=== PATIENT | male | born 1965 | race Caucasian/White ===

== ENCOUNTER 2020-12-24 09:40 | Outpatient (CLI) | payer BC, SELFPAY ==
--- NOTE | ~2020-12-24 | XR_ITS ---
XR lumbar spine 2-3V 12/24/2020 09:54 Indication: Low back pain Procedure: 3 views lumbar spine Comparison: No prior studies for comparison. Findings: Mild levocurvature of the lumbar spine. There is disc narrowing at all lumbar levels. There is moderate multilevel facet hypertrophy. There is mild levocurvature of the lumbar spine. Moderate colonic fecal loading. No fracture or traumatic malalignment. Impression: 1: Moderate lumbar spondylosis. Reviewed, dictated and finalized at location B. Impression: 1: Moderate lumbar spondylosis.
== END 2020-12-24 09:41 ==
PROVIDERS: PCP Internal Medicine; Visit Provider Internal Medicine
DX: M47.896 Other spondylosis, lumbar region (principal)
CPT/HCPCS: 72100

== ENCOUNTER 2024-11-26 03:25 | Emergency (ER) | payer MEDICARE, SELFPAY ==
--- NOTE | ~2024-11-26 | CT_ITS ---
Non-contrast CT scan of the Abdomen and Pelvis Clinical indication: Flank pain, urinary retention Technique: 2.5 mm axial scans were obtained through the abdomen and pelvis without intravenous or or al contrast. Dose reduction technique was used on this scan by utilizing automated exposure control a nd iterative reconstruction technique. The dose-length product (DLP) was 654.10 mGy-cm. Findings: Images through the lung bases reveal discoid atelectasis or scarring at the lung bases lilian aterally. 2 mm nonobstructing left renal stone present. No right renal stone. No ureteral stone or hydronephros is on either side. The liver, spleen, pancreas, gallbladder, and adrenals appear normal. There are atherosclerotic calci fications of the aorta. . There is no evidence of bowel obstruction. Images through the pelvis were performed. There is no evidence of ascites or lymphadenopathy. Urinary bladder collapsed with Daniel catheter, and air within it. Prostate gland is enlarged. No ascites. Impression: 2 mm nonobstructing left renal stone. Enlarged prostate gland. Reviewed, dictated and finalized at [facility]. Impression: 2 mm nonobstructing left renal stone. Enlarged prostate gland.
--- OUTSIDE RECORDS SUMMARY | 2024-11-26 03:27 | XMS_ITS | Clinical Summary ---
Author Organization [facility] Address [address] [place] [id number] Care Team Providers Care Zoo Caretaker Name Role Phone Prince Lopez MD Primary Care Provider [phone] Allergies No known active allergies Medications No known medications Social History Tobacco Use Types Packs/Day Years Used Date Smoking Tobacco: Every Day Cigarettes Smokeless Tobacco: Never Alcohol Use Standard Drinks/Week Comments Yes 0 (1 standard drink = 0.6 oz pur e alcohol) 10 drinks a week Sex and Gender Information Value Date Recorded Sex Assigned at Not on file Legal Sex Male 5:24 PM CDT Gender Identity Not on file Sexual Orientation Not on file Last Filed Vital Signs Vital Sign Reading Time Taken Comments Blood Pressure 112/60 06/11/2022 8:30 PM CDT Pulse 64 06/11/2022 7:12 PM CDT Temperature 36.4 C (97.5 F) 06/11/2022 5:30 PM CDT Respiratory Rate 18 06/11/2022 7:12 PM CDT Oxygen Saturation 96% 06/11/2022 8:30 PM CDT Inhaled Oxygen Concentration - - Weight 86.2 kg (190 lb) 06/11/2022 5:30 PM CDT Height 188 cm (6' 2 ) 06/11/2022 5:30 PM CDT Body Mass Index 24.39 06/11/2022 5:30 PM CDT Plan of Treatment Health Maintenance Due Date Last Done Comments Colorectal Cancer Screening Colonoscopy (10 Years) 1963 Annual Physical 11/25/1966 Pneumococcal Vaccine: Pediatrics (0 to 5 Years) and At-Risk Patients (6 to 64 Years) (1 of 2 - PCV) 11/25/1969 Hepatitis C 11/25/1981 DTaP, Tdap and Td Vaccines (1 - Tdap) 11/25/1982 Zoster Vaccines (1 of 2) 11/25/2013 COVID-19 Vaccine ( - season) 2024 02/21/2022, 06/08/2021, 09/23/2020, Additional history exists RSV Immunization or 60+ Years (1 - 1-dose 75+ series) 11/25/2038 Meningococcal B Vaccine Aged Out No l onger eligible based on patient's age to complete this topic Meningococcal Vaccine Aged Out No eugenia nikolai eligible based on patient's age to complete this topic RSV Immunizations Under 20 Months Aged Out No longer eligible based on patient's age to complete this topic Insurance Care Teams Zoo Caretaker Relationship Specialty Start Date End Date Prince Lopez MD PCP - General INTERNAL MEDICINE 06/11/22
--- OUTSIDE RECORDS SUMMARY | 2024-11-26 03:27 | XMS_ITS | Encounter Summary ---
Author Organization [facility] Address [address] [place] [address] Care Team Providers Care Project Management It Specialist Name Role Phone Prince Lopez MD Primary Care Provider Encounter Details Date Type Department Care Team (Late st Contact Info) Description 11/25/2024 11:43 AM CDT - 11/25/2024 11:59 PM CDT Hospital Encounter [facility] [address] [facility] [place] [address] Gilson Almeida, DO [address] [facility] [place] [address] Discharge Disposition: Home or Self Care Social History Tobacco Use Types Packs/Day Years Used Date Smoking Tobacco: Every Day Cigarettes Smokeless Tobacco: Never Alcohol Use Standard Drinks/Week Comments Yes 2 (1 standard drink = 0.6 oz pur e alcohol) two 24 oz cans of beer per day AUDIT-C Answer Date Recorded Q1: How often do you have a drink containing alc ohol? Never 07/05/2022 Q2: How many drinks containi ng alcohol do you have on a typical day when you are drinking? Patient declined 07/05/2022 Q3: How often do you have si x or more drinks on one occasion? Patient declined 07/05/2022 PHQ-2 Answer Date Recorded Patient Health Questionnaire-2 Score 0 11/25/2024 Hunger Vital Sign Answer Date Recorded Within the past 12 months, y ou worried that your food would run out before you got the money to buy more. Never true 07/06/20 22 Within the past 12 months, t he food you bought just didn't last and you didn't have money to get more. Never true 07/06/2022 Sex and Gender Information Value Date Recorded Sex Assigned at Not on file Gender Identity Not on file Sexual Orientation Not on file documented as of this encounter Functional Status Functional Status Response Date of Assess ment Is person deaf or have serious hearing difficult y? No 06/12/2022 Is person blind or have serious difficulty seein g? No 06/12/2022 Does person have serious dif ficulty walking/climbing stairs? No 06/12/2022 Does person have difficulty dressing/bathing? No 06/12/2022 Does person have difficulty doing errands alone? No 06/12/2022 Cognitive Status Response Date of Assessm ent Does person have difficulty concentrating/remembering/making decisions? No 06/12/2022 documented as of this encounter Medications at Time of Discharge Medication Sig Dispensed Refills Start Date End Date acetaminophen (Tylenol) 325 MG tablet Take 1 (one) tablet to 2 (two) tablets by mouth every 6 hours as needed for Pain Maximum allowable Acetaminophen amount = 4 Grams (4000 mg) / 24 hours. 60 tablet 07/07/2022 acetaminophen-codeine (Tylenol #3) 300-30 MG tablet Take 1 (one) tablet by mouth every 6 hours as needed for Pain 12 tablet 04/24/2023 buPROPion XL 24hr (Wellbutrin-XL) 300 MG tablet Take 1 (one) tablet by mouth every morning cyclobenzaprine (Flexeril) 10 MG tabletIndications:Typ e I or II open fracture of left ankle with routine healing, subsequent encounter TAKE 1 TABLET BY MOUTH THREE TIMES DAILY NEEDED FOR MUSCLE SPASMS 30 tablet 08/29/2022 diclofenac sodium (Voltaren) 1 % gel Apply 2 (two) g to affected area 4 times daily 100 g 06/05/2023 FLUoxetine (PROzac) 40 MG capsule Take 1 (one) capsule by mouth once daily gabapentin (Neurontin) 600 MG tablet TAKE 1 TABLET BY MOUTH THREE TIMES DAILY 90 tablet 2 08/02/2023 documented as of this encounter Plan of Treatment Not on file documented as of this encounter Procedures Procedure Name Priority Date/Time Associated Diagnosis Comments XR ANKLE LEFT 3VW OR MORE Routine 11/25/2024 11:49 AM CDT Closed displaced pilon fracture of left tibia with routine healing, subsequent encounter documented in this encounter Results * XR Ankle Left 3Vw or More (11/25/2024 11:49 AM CDT) Anatomical Region Laterality Modality Lower Extremity Computed Radiogr aphy 11/25/2024 1:24 PM CDT Impressions 11/25/2024 1:28 PM CDT IMPRESSION: Distal tibial fracture with plate and screw fixation. The alignment is unchanged. There are several broken screws which are unchanged. > Interpreting Provider: Edgar Quiles MD on 11/25/2024 1:28 PM Narrative 11/25/2024 1:28 PM CDT PROCEDURE: XR ANKLE LEFT 3VW OR MORE DATE/TIME OF EXAM: 11/25/2024 11:49 AM CLINICAL INFORMATION: None relevant/not provided if blank. Indication: S82.872D: Closed displaced pilon fracture of left tibia with routine healing, subsequent encounter Additional History: COMPARISON: 02/19/2024 FINDINGS: Redemonstration of a distal tibial fracture with plate and screw fixation. There are several broken screws, unchanged. The osseous alignment is unchanged. There is no dislocation. The tibiotalar joint space is obscured due to the hardware. Procedure Note Edgar Quiles MD - 11/25/2024 PROCEDURE: XR ANKLE LEFT 3VW OR MORE DATE/TIME OF EXAM: 11/25/2024 11:49 AM CLINICAL INFORMATION: None relevant/not provided if blank. Indication: S82.872D: Closed displaced pilon fracture of left tibia with routine healing, subsequent encounter Additional History: COMPARISON: 02/19/2024 FINDINGS: Redemonstration of a distal tibial fracture with plate and screwfixation. There are several broken screws, unchanged. The osseous alignment is unchanged. There is no dislocation. The tibiotalar joint space isobscured due to the hardware. IMPRESSION: Distal tibial fracture with plate and screw fixation. The alignment is unchanged. There are several broken screws which are unchanged. > Interpreting Provider: Edgar Quiles MD on 11/25/2024 1:28 PM Gilson Almeida DO DIAGNOSTIC IMAGING [facility] documented in this encounter Visit Diagnoses Diagnosis Closed displaced pilon fracture of left tibia with routine healing, subsequent encounter documented in this encounter Care Teams Project Management It Specialist Relationship Specialty Start Date End Date Prince Lopez MD [id number] [address] PCP - General Internal Medicine 12/04/23 documented as of this encounter
--- OUTSIDE RECORDS SUMMARY | 2024-11-26 03:27 | XMS_ITS | CONTINUITY OF CARE DOCUMENT ---
Author Name lelo lind Address Unknown Organization [facility] Address [address] [facility] [address] [place] [address] Phone [phone] Care Team Providers Care Php Web Developer Name Role Phone Caesar Stafford MD Unavailable [phone] Prince Lopez MD Unavailable Prince Lopez MD Unavailable PROBLEMS Condition Status Date Provider Notes CHEST PAIN-TYPE TO BE DETERMINED active ? Caesar Stafford MD TOBACCO ABUSE active ? Caesar Stafford MD PALPITATIONS active Caesar Stafford MD ENCOUNTERS Date Type Provider Location Encounter Diag nosis - In-person encounter Office Visit Caesar Stafford MD [place] [facility] CHEST PAIN-TYPE TO BE DETERMINEDTOBACCO ABUSEPALPITATIONS VITAL SIGNS Date Observation Value Provider blood pressure, diastolic, left arm 71 mm [Hg] Stefan Hughes RN blood pressure, systolic, left arm 117 mm [Hg] Stefan Hughes RN blood pressure, diastolic, right arm 69 m m[Hg] Stefan Hughes RN blood pressure, systolic, right arm 112 m m[Hg] Stefan Hughes RN blood pressure, diastolic 71 mm[Hg] Fabiano Hughes RN blood pressure, systolic 117 mm[Hg] Stefan Hughes RN pulse rate 57 /min Stefan Hughes RN oxygen saturation, oximetry 96 % Stefan Hughes RN respiratory rate E&M 18 /min Stefan rodgers RN weight E&M 213 [lb_av] Stefan Hughes RN HISTORY OF MEDICATION USE Medication Status Instructions Dates Provider Indications Com ments CYCLOBENZAPRINE HCL 5 MG ORAL TABLET active 1 tablet by mouth daily Matt Reajewels DICLOFENAC SODIUM 75 MG ORAL TABLET DELAYED RELEASE active 1 tablet by mouth daily Matt Reajewels FAMOTIDINE 20 MG ORAL TABLET active 1 tablet by mouth twice daily Matt Reajewels SERTRALINE HCL 50 MG ORAL TABLET active 1 tablet by mouth daily Matt Vail PROTONIX 20 MG ORAL TABLET DELAYED RELEASE active ONE TAB. DAILY Stefan Hughes RN SOCIAL HISTORY Date Observation Value Provider smoking/tobacco cess ation, patient education and counseling yes Stefan Hughes RN social history E&M Marital Statu s: Dayana kohler with family/friends E thnicity: Stefan Hughes RN social history reviewed E&M reviewed Stefan Hughes RN physical exercise, f requency, days per week no [employer] caffeine use, averag e drinks per day yes [employer] alcohol use, average drinks per day 1-3 drinks per day [employer] number of years as a smoker 10 years or m ore [facility] smoking status [facility] MENTAL [facility]US Date Observation Value Provider assessment of judgme nt and insight E&M Alert and oriented to time, place and person. Mood and affect are normal. Stefan Hughes RN INSURANCE PROVIDERS Payer name Policy type / Coverage type Yung red republican ID [facility] Other [id number] TREATMENT PLAN Date Name Performer chest pain: B P today: 117/71 Prior BP: / () Orders: E KG (CPT-13288) C omplete Echo (CPT-44213) S tress Test - Nuclear (82036) Caesar Stafford MD Date Name Holter Monitor 24 Hr Stress Test - Nuclea r Complete Echo HISTORY OF PROCEDURES Procedure Date Procedure Name Provider Procedure Notes S tatus EKG Caesar Stafford MD completed
--- OUTSIDE RECORDS SUMMARY | 2024-11-26 03:27 | XMS_ITS | Encounter Summary ---
Author Organization [facility] Address [address] [place] [address] Care Team Providers Care Product Development Worker Name Role Phone Prince Lopez MD Primary Care Provider [phone] Encounter Details Date Type Department Care Team (Late st Contact Info) Description 11/24/2024 Orders Only [facility] - Orthoped[facility] [address] [place] [address], [place] [id number] Gilson Almeida, [address] [place] [address] [place] [address] Closed displaced pilon fracture of left tibia with routine healing, subsequent encounter Social History Tobacco Use Types Packs/Day Years [...] No 06/12/2022 documented as of this encounter Plan of Treatment Not on file documented as of this encounter Results * XR Ankle Left [...] of left tibia with routine healing, subsequent encounter- Primary Closed displaced pilon fracture of left tibia with routine healing, subsequent encounter documented in this encounter Care Teams Product Development Worker Relationship Specialty Start Date End Date Prince Lopez MD [phone] [address] PCP - General Internal Medicine 12/04/23 documented as of this encounter
--- OUTSIDE RECORDS SUMMARY | 2024-11-26 03:27 | XMS_ITS | Clinical Summary ---
Author Organization [facility] [employer] [facility] Address [address] [facility] [place] [address] Care Team Providers Care Pad Hand Name Role Phone Prince Lopez MD Primary Care Provider Source Comments [facility] [employer] [facility]non-owned Affiliates and Associated Physician Practices is amultiple site organization consisting of ambulatory clinics and hospital sitesin [place] and [place]. This disclosure is being madepursuant to the Care Everywhere program and may not contain all information available regarding this patient. Last updated 18.[facility] [employer] [facility] Allergies No known active allergies Medications * Be aware that medications may not be up to date on this document. Alwaysverify current medications with the patient. Medication Sig Dispensed Refills Start Date End Date Status buPROPion XL 24hr (Wellbutrin-XL) 300 MG tablet Take 1 (one) tablet by mouth every morning Active FLUoxetine (PROzac) 40 MG capsule Take 1 (one) capsule by mouth once daily Active acetaminophen (Tylenol) 325 MG tablet Take 1 (one) tablet to 2 (two) tablets by mouth every 6 hours as needed for Pain Maximum allowable Acetaminophen amount = 4 Grams (4000 mg) / 24 hours. 60 tablet 07/07/2022 Active cyclobenzaprine (Flexeril) 10 MG tabletIndication s:Type I or II open fracture of left ankle with routine healing, subsequent encounter TAKE 1 TABLET BY MOUTH THREE TIMES DAILY NEEDED FOR MUSCLE SPASMS 30 tablet 08/29/2022 Active Additional Information Patient taking differently: 10 mg Oral 3 TIMES DAILY PRN, Reported on 01/23/2023 acetaminophen-co deine (Tylenol #3) 300-30 MG tablet Take 1 (one) tablet by mouth every 6 hours as needed for Pain 12 tablet 04/24/2023 Active Additional Information Patient not taking.Reported on 08/07/2023 diclofenac sodium (Voltaren) 1 % gel Apply 2 (two) g to affected area 4 times daily 100 g 06/05/2023 Active gabapentin (Neurontin) 600 MG tablet TAKE 1 TABLET BY MOUTH THREE TIMES DAILY 90 tablet 2 08/02/2023 Active triamcinolone acetonide (Kenalog) 0.1 % cream Apply 0.1 Each to affected area as directed 5 Discontinue d(List Clean-Up) diclofenac sodium EC (Voltaren) 75 MG tablet Take 1 (one) tablet by mouth as directed 5 Discontinue d(List Clean-Up) meloxicam (Mobic) 7.5 MG tablet Take 1 (one) tablet by mouth once daily 30 tablet 3 06/05/2023 5 Discontinue d(List Clean-Up) Active Problems Problem Noted Date Diagnosed Date Closed displaced pilon fract ure of left tibia with routine healing, subsequent encounter 07/05/2022 Fall 06/12/2022 Closed displaced pilon fracture of left tibia [place] fracture of fibu la, left, closed, initial encounter 06/12/2022 Encounters Date Type Department Care Team Description 11/25/2024 12:15 PM CDT Office Visit [facility] - Orthopedics [address] [place] [address] [phone] Gilson Almeida DO Hennessey, Margaret Ann, PA-C Closed displaced pilon fracture of left tibia with routine healing, subsequent encounter (Primary Dx) 11/25/2024 11:43 AM CDT - 11/25/2024 11:59 PM CDT Hospital Encounter [facility] [address] [place] [phone] Gilson Almeida DO Discharge Disposition: Home or Self Care 11/24/2024 Orders Only [facility] - Orthopedics [address] [place] [address] [phone] Gilson Almeida DO Closed displaced pilon fracture of left tibia with routine healing, subsequent encounter 11/05/2024 Travel from Last 3 Months Immunizations Name Administration Dates Next Due Christelle De Santiago primary monovalent 12+ yr 0.5mL ,09/02/2020 INFLUENZA VACCINE 05/08/2022 Social History Tobacco Use Types Packs/Day Years Used Date Smoking Tobacco: Every Day Cigarettes Smokeless Tobacco: Never Tobacco Cessation:Ready to Q uit: Not Asked; Counseling Given: Not Answered Alcohol Use Standard Drinks/Week Comments Yes 2 [...] Sign Reading Time Taken Comments Blood Pressure 133/89 09/19/2022 1:51 PM CONCESSION SUPERVISOR Pulse 81 09/19/2022 1:51 PM CONCESSION SUPERVISOR Temperature 36.7 C (98 F) 09/19/2022 1:51 PM CONCESSION SUPERVISOR Respiratory Rate 20 07/07/2022 12:47 PM CONCESSION SUPERVISOR Oxygen Saturation 98% 09/19/2022 1:51 PM CONCESSION SUPERVISOR Inhaled Oxygen Concentration - - Weight 90.7 kg (200 lb) 11/25/2024 11:52 AM CDT Height 188 cm (6' 2 ) 10/17/2022 3:17 PM CONCESSION SUPERVISOR Body Mass Index 25.68 10/17/2022 3:17 PM CONCESSION SUPERVISOR Plan of Treatment Health Maintenance Due Date Last Done Comments COLOGUARD (AGES 45-75) - COLON CA SCREENING 1963 COLON MONITORING 1963 COLONOSCOPY - COLON CA SCREENING 1963 CT COLONOGRAPHY - COLON CA SCREENING 1963 Colorectal Cancer Screening 1963 FIT - COLON CA SCREENING 1963 FLEX SIG - COLON CA SCREENING 1963 LIPID TESTING 1963 HIV SCREENING 11/25/1978 HEPATITIS C SCREENING 11/21/1981 DTAP/TDAP/TD VACCINES (1 - Tdap) 11/25/1982 PNEUMOCOCCAL VACCINE 50+ (1 of 2 - PCV) 11/25/1982 ZOSTER VACCINE (1 of 2) 11/25/2013 Respiratory Syncytial Virus (RSV) Vaccine Pt: or over 60 yrs (1 - Risk 60-74 years 1-dose series) 2023 COVID-19 VACCINE (2023- season) 2024 06/09/2022, 02/21/2022, 06/08/2021, Additional history exists INFLUENZA VACCINE (Season Ended) 2025 05/08/2022 DEPRESSION SCREENING Completed 11/25/2024, 12/04/19 24 HEPATITIS B VACCINE Aged Out No longe r eligible based on patient's age to complete this topic HIB VACCINE Aged Out No longer eligi ble based on patient's age to complete this topic HPV VACCINE Aged Out No longer eligi ble based on patient's age to complete this topic MENINGOCOCCAL (Group B) VACCINE SHARED DECISION-MAKING Aged Out No longer eligible based on patient's age to complete this topic MENINGOCOCCAL GROUPS A/C/Y/W VACCINE Aged Out No longer eligible based on patient's age to complete this topic Medical Devices Implanted Type Area Rope Tier Device Identifier Shelf Expiration Date Model / Serial / Lot Pin Hlf 255mm 5mm Jtx Lng Ss 35mm Extfix Implanted:Qty: 2 on 06/12/2022 by Gilson Almeida DO at [facility] Left: [employer] [id number] / / Pin Hlf 5cm 5mm Jtx Orth Ss Extfix Sys Implanted:Qty: 1 on 06/12/2022 by Gilson Almeida DO at [facility] Left: [employer] [id number] / / Screw 3.5mm 30mm Cortx Slf-Tap Evos Strl Implanted:Qty: 2 on 07/05/2022 by Gilson Almeida DO at [facility] Left: Ankle [employer] [id number] / / Screw 3.5mm 42mm Slf-Tap Cortx Evos Strl Implanted:Qty: 1 on 07/05/2022 by Gilson Almeida, DO at [facility] Left: Ankle [employer] [id number] / / Screw 3.5mm 48mm 2.2mm Mldir Lck Sq Drv Implanted:Qty: 1 on 07/05/2022 by Gilson Almeida DO at [facility] Left: Ankle [employer] [id number] / / Screw 3.5mm 46mm T15 Drv Lck Lopro Implanted:Qty: 1 on 07/05/2022 by Gilson Almeida, DO at [facility] Left: Ankle [employer] [id number] / / Screw 3.5mm 55mm T15 Lck Lopro Slf-Tap Implanted:Qty: 2 on 07/05/2022 by Gilson Almeida DO at [facility] Left: Ankle [employer] [id number] / / Screw 3.5mm 26mm 2.5mm Nonlock Hex Drv Implanted:Qty: 1 on 07/05/2022 by Gilson Almeida DO at [facility] Left: Ankle [employer] [id number] / / Screw 3.5mm 30mm Ft Slf-Tap Hex Lopro Implanted:Qty: 1 on 07/05/2022 by Gilson Almeida DO at [facility] Left: Ankle [employer] [id number] / / Screw 3.5mm 34mm Ft Nonlock Hex Drv Elb Implanted:Qty: 1 on 07/05/2022 by Gilson Almeida DO at [facility] Left: Ankle [employer] [id number] / / Screw 3.5mm 42mm Ft Slf-Tap Hex Lopro Implanted:Qty: 1 on 07/05/2022 by Gilson Almeida DO at [facility] Left: Ankle [employer] [id number] / / Plate 9 Hl Lopro Va Lck Prt Artc Tib Lt Implanted:Qty: 1 on 07/05/2022 by Gilson Almeida DO at [facility] Left: Ankle [employer] [id number] / / Plate 9 Hl Lck Lopro Blt Tip Tib Lt Dist Implanted:Qty: 1 on 07/05/2022 by Gilson Almeida DO at [facility] Left: Ankle [employer] [id number] / / Plate 6 Hl Lck 70mm /3 Tblr Evos 3.5mm Implanted:Qty: 1 on 07/05/2022 by Gilson Almeida DO at [facility] Left: Ankle [employer] [id number] / / Plate 9 Hl Va Lck Fib Lt Dist 125mm Implanted:Qty: 1 on 07/05/2022 by Gilson Almeida, DO at [facility] Left: Ankle [employer] [id number] / / Screw 3.5mm 40mm Slf-Tap Cortx Evos Strl Implanted:Qty: 1 on 07/05/2022 by Gilson Almieda DO at [facility] Left: Ankle [employer] [id number] / / Screw 3.5mm 50mm Slf-Tap Cortx Evos Strl Implanted:Qty: 1 on 07/05/2022 by Gilson Almeida DO at [facility] Left: Ankle [employer] [id number] / / Screw 3.5mm 26mm Slf-Tap Cortx Evos Strl Implanted:Qty: 1 on 07/05/2022 by Gilson Almeida DO at [facility] Left: Ankle [employer] [id number] / / Screw 3.5mm 28mm Slf-Tap Cortx Evos Strl Implanted:Qty: 3 on 07/05/2022 by Gilson Almeida DO at [facility] Left: Ankle [employer] [id number] / / Explanted Type Area Rope Tier Device Identifier Shelf Expiration Date Model / Serial / Lot Wire K 1.6mm 6in Hlf Bynt Pnt Ss Fx Explanted:Qty: 3 on 07/05/2022 by Gilson Almeida DO at [facility] Left: Ankle [employer] [id number] / / Screw 3.5mm 30mm T15 Slf-Tap Tip Lck Explanted:Qty: 1 on 07/05/2022 by Gilson Almeida DO at [facility] Left: Ankle [employer] [id number] / / Screw 3.5mm 44mm Ft Slf-Tap Hex Lopro Explanted:Qty: 1 on 07/05/2022 by Gilson Almeida DO at [facility] Left: Ankle [employer] [id number] / / Screw 3.5mm 46mm Ft Hex Drv Nlckg Ford Explanted:Qty: 1 on 07/05/2022 by Gilson Almeida DO at [facility] Left: Ankle [employer] [id number] / / Screw 3.5mm 20mm Slf-Tap Cortx Evos Strl Explanted:Qty: 1 on 07/05/2022 by Gilson Almeida DO at [facility] Left: Ankle [employer] [id number] / / Procedures Procedure Name Priority Date/Time Associated Diagnosis Comments XR ANKLE LEFT 3VW OR MORE Routine 11/25/2024 11:49 AM CDT Closed displaced pilon fracture of left tibia with routine healing, subsequent encounter from Last 3 Months Results * XR Ankle Left 3Vw or [...] Gilson Almeida DO DIAGNOSTIC IMAGING O RDERABLES from Last 3 Months Advance Directives * Full Code (Latest Code Status on File) Date Activated Date Inactivated Comments 07/05/2022 3:39 PM 07/07/2022 6:04 PM * Full Code Date Activated Date Inactivated Comments 06/12/2022 4:47 PM 06/13/2022 7:29 PM Care Teams Pad Hand Relationship Specialty Start Date End Date Prince Lopez MD [address] [address] PCP - General Internal Medicine 12/04/23
--- OUTSIDE RECORDS SUMMARY | 2024-11-26 03:27 | XMS_ITS | Encounter Summary ---
Author Organization [facility] Address [address] [address] Care Team Providers Care Brine Maker Name Role Phone Prince Lopez MD Primary Care Provider [phone] Encounter Details Date Type Department Care Team (Late st Contact Info) Description 11/25/2024 12:15 PM CDT Office Visit [facility] - Orthopedics [address] [place] [address], [place] [phone] Gilson Almeida, [address] [facility] [place] [address] Freya Perez PA-C [address] [place] [address] [place] [address] Closed displaced pilon fracture of left tibia with routine healing, subsequent encounter (Primary Dx) Social History Tobacco Use Types Packs/Day Years [...] on file documented as of this encounter Last Filed Vital Signs Vital Sign Reading Time Taken Comments Blood Pressure - - Pulse - - Temperature - - Respiratory Rate - - Oxygen Saturation - - Inhaled Oxygen Concentration - - Weight 90.7 kg (200 lb) 11/25/2024 11:52 AM CDT Height - - Body Mass Index 25.68 10/17/2022 3:17 PM DELIVERY AGENT documented in this encounter Functional Status Functional Status Response [...] No 06/12/2022 documented as of this encounter Patient Instructions * Patient Instructions* Freya Perez PA-C - 11/25/2024 12:14 PM CDT Images from the original note were not included. Department of Orthopaedic Surgery Helio Fuchs 11/25/2024 Thank you for allowing us to care for you today. You were seen in clinic today for follow up Please use this note as a school/work excuse: patient had appointment on 11/25/2024. Diagnosis: Closed displaced pilon fracture of left tibia with routine healing, subsequent encounter Your weight bearing (WB) status will be WBAT of the left lower extremity We recommend that you try the following for your injury: Activities as tolerated If you are interested in further surgery for ankle fusion, we will have a Foot & Ankle specialist joining the practice in Fall 2024. Prescriptions: none Medications over the counter: - Acetaminophen (Tylenol) 500mg 1-2 tablets every 6 hours as needed for pain, not exceeding daily total of 4000mg. Please note that narcotic medications can consist of same ingredient. - Anti-inflammatory medications, such as Ibuprofen or Aleve, as needed for pain. Bone Health: Recommend the following to promote bone health: Vitamin D Multivitamin 1 tablet daily Calcium 1200mg daily Stop smoking - nicotine, which can be found in cigarettes, cigars, chewing tobacco, and e-cigarettes/vapres, has been shown to slow bone healing and increase your risk for infection. Decrease alcohol consumption Fall prevention Please make a follow up appointment as needed. Please call the clinic if you have any questions. [facility] Orthopaedic office contact information: [facility] ([facility]) - 1st Floor [address] [place] [address] For after hour concerns, please call and press 0 for the candle extrusion machine operator in order to page the orthopedic resident longwall foreman. Visit our website at [email or web address] for information about our practice and an interactive health encyclopedia. Please visit [email or web address] to access your health record, ask questions, request medication refills, and request appointments for non-urgent needs after you have configured your [employer] account. If you do not currently have access, please contact one of our staff members or call [phone]. documented in this encounter Progress Notes * Leonela Turner RN - 11/25/2024 12:00 PM CDT Patient here reported persistent pain and discomfort to left ankle, pain is 7/10, takes Tylenol PRN. Numbness, tingling noted at times. Has been WBAT with cane for long distances. documented in this encounter Plan of Treatment Not on file documented as of this encounter Visit Diagnoses Diagnosis Closed displaced pilon fracture of left tibia with routine healing, subsequent encounter- Primary documented in this encounter Care Teams Brine Maker Relationship Specialty Start Date End Date Prince Lopez MD [address] [address] PCP - General Internal Medicine 12/04/23 documented as of this encounter
[2024-11-26 03:32] VITALS: BP 138/92; PULSE 67; RESP 16; TEMP 36.3; O2SAT 97
--- NOTE | 2024-11-26 04:01 | ED.ABDPAIN ---
HPI - Abdominal Pain General Chief Complaint: Abdominal Pain Stated Complaint: abd pain Time Seen by Provider: 11/26/24 03:31 History of Present Illness HPI narrative: 59-year-old male with no pertinent past medical history presenting to the emergency department for evaluation of urinary retention and back pain for last 2 days. He states he has been having some urinary issues for last week with dribbling in urine, split streams, no history of kidney stones or prostate issues. No fever chills. Reports right-sided back pain. No history of kidney stones but has a family history of them. Was otherwise in his normal state of health. In triage she had a greater than 1000 mL bladder scan. Has not seen a urologist previously. Related Data Allergies Allergy/AdvReac Type Severity Reaction Status Date / Time No Known Allergies Allergy Verified 11/26/24 03:26 Review of Systems Review of Systems: As [facility] Family History Family History Sibling Family history of lupus erythematosus Mother Family history of heart disease in male family member before age 55 Other Family history of Alzheimer's disease Hypertension Social History Social History Smoking status: Heavy tobacco smoker Alcohol intake: current Exam Narrative: GENERAL: [Well-appearing, well-nourished, and in no acute distress.] HEAD: [Normocephalic, atraumatic.] EYES: [PERRLA and EOMI.] ENT: Nares clear, no rhinorrhea or epistaxis. Mucous membranes moist. NECK: Supple. CHEST: [Clear to auscultation. No respiratory distress.] HEART: [Regular rate and rhythm]. No murmur heard. [Normal peripheral pulses.] ABDOMEN: Distended suprapubic area, no CVA tenderness, [nontender], [No rigidity or guarding] EXTREMITIES: Normal range of motion. [No edema.] SKIN: Warm, dry, no rash. NEURO: [No focal deficits]. Alert and oriented [x3.] PSYCH: [Normal mood and affect.] Course Vital Signs Vital signs: Vital Signs Temperature 36.3 C L 11/26/24 03:32 Pulse Rate 67 11/26/24 03:32 Respiratory Rate 16 11/26/24 03:32 Blood Pressure 138/92 H 11/26/24 03:32 Pulse Oximetry 97 11/26/24 03:32 Oxygen Delivery Room Air 11/26/24 03:32 Temperature 36.7 C 11/26/24 06:25 Pulse Rate 75 11/26/24 06:25 Respiratory Rate 19 11/26/24 06:25 Blood Pressure 124/85 11/26/24 06:25 Pulse Oximetry 97 11/26/24 06:25 Oxygen Delivery Room Air 11/26/24 03:32 MDM - Abdominal Pain MDM Narrative Medical decision making narrative: 59-year-old male presenting with lower abdominal pain, abdominal distension and right-sided flank pain for 2 days associated with changes in his urination. He has no known history of kidney stones or prostate issues. For last 2 days he has been having dribbling with urinary stream. No fever chills. Normal vital signs in triage. Abdomen is soft but distended. Urinary catheter was placed for urinary retention as he has a bladder scan of greater than 1000 mL. He had immediate relief of abdominal pain and back pain and almost 1 L of urine without was clear has been drained. His abdomen is no longer distended. Considerations presently are for acute urinary retention, prostate issues, prostatitis, urinary tract infection, obstructing kidney stone, bladder stone. Laboratory studies were obtained as well as urinalysis. CT without contrast ordered. Patient will be evaluated and he was placed on monitor and pulse ox. Patient's workup shows a leukocytosis of 17.8, normal platelets, normal hemoglobin. Chemistry panel shows normal renal function, normal glucose, normal LFTs. Unremarkable electrolytes. Urinalysis shows no signs of infection. CT scan shows a 2 mm nonobstructing left renal stone as well as a enlarged prostate gland which is likely the source for the symptoms. Patient has no fever or chills, no tachycardia. No suspicion presently for prostatitis. I discussed with the patient plan of care at this time for Flomax and outpatient urology follow-up with or without indwelling Daniel catheter upon discharge. Elected to keep the catheter in place rather than do a trial of void with removal in the emergency department. Patient was given Flomax and Tylenol, ibuprofen. He will follow up with Urology and his primary doctor. He was given return precautions which he verbalized understanding. Medical Records Attestation: I reviewed the patient's medical records. Lab Data Attestation: I reviewed the patient's lab results. 11/26/24 03:41 11/26/24 03:41 Labs: Lab Results 11/26/24 Range/Units 03:41 WBC 17.8 H (4.5-10.0) K/mm3 RBC 5.15 (4.6-6.20) M/mm3 Hgb 15.8 (14.0-18.0) g/dL Hct 46.3 (42.0-52.0) % MCV 89.9 (80-100) fl MCH 30.7 (26-34) pg MCHC 34.1 (32-36) g/dl RDW 13.4 (11.5-14.5) % Plt Count 243 (150-375) k/mm3 MPV 11.2 H (7.4-10.4) fl Immature Gran % (Auto) 0.4 (0-0.5) % Neut % (Auto) 87.4 H (45.5-73.1) % Lymph % (Auto) 8.5 L (18.3-44.2) % Hooker % (Auto) 3.3 (2.6-8.5) % Eos % (Auto) 0.2 (0-4.4) % Baso % (Auto) 0.2 (0.2-1.2) % Lymph # (Auto) 1.51 (0.9-3.2) K/mm3 Hooker # (Auto) 0.6 (0.1-0.6) K/mm3 Eos # (Auto) 0.0 (0-0.3) K/mm3 Baso # (Auto) 0.0 (0.0-0.1) K/mm3 Abs Immat Gran (auto) 0.07 H (0.00-0.031) K/mm3 Absolute Neuts (auto) 15.6 H (1.3-6.7) K/mm3 Absolute Nucleated RBC 0.000 (0.0-0.012) K/mm3 Nucleated RBC % 0.0 (0.0-0.2) % Sodium 141 (137-145) mmol/L Potassium 4.1 (3.4-5.0) mmol/L Chloride 106 (98-107) mmol/L Carbon Dioxide 19 L (22-30) mmol/L Anion Gap 16 H (4-12) mmol/L BUN 17 (9-20) mg/dL Creatinine 0.93 (0.7-1.3) mg/dL Estim Creat Clear Calc 83 ml/min Estimated GFR > 60 (59 - ) Glucose 128 H (65-110) mg/dL Calcium 10.2 (8.4-10.2) mg/dL Total Bilirubin 0.3 (0.2-1.3) mg/dL AST 36 (17-59) U/L ALT 30 (6-50) U/L Alkaline Phosphatase 96 (38-126) U/L Total Protein 8.0 (6.3-8.2) g/dL Albumin 4.9 (3.5-5.1) g/dL Lipase 48 (23-300) U/L Urine Color Yellow (Yellow) Urine Appearance Clear (Clear) Urine pH 5.0 (5.0-9.0) Ur Specific [place] 1.007 (1.001-1.035) Urine Protein Negative (Negative) mg/dL Urine Glucose (UA) Negative (Negative) mg/dL Urine Ketones Negative (Negative) mg/dL Ur Blood (Man) 2+ H (Negative) Urine Nitrate Negative (Negative) Urine Bilirubin Negative (Negative) Urine Urobilinogen 0.2 (<2.0) mg/dL Leukocyte Esterase Rfl Negative (Negative) ZELDA/UL Urine RBC 0-2 (0-2) /hpf Urine WBC 0-5 (0-3) /hpf Ur Squamous Epith Cells None seen (Few) /hpf Urine Bacteria None seen /hpf Urine Casts 0-2 Imaging Data Attestation: I personally reviewed and interpreted this imaging study as follows: Radiologist's impression: ITS Impressions Abdomen/Pelvis CT 11/26/24 06:13 Impression: 2 mm nonobstructing left renal stone. Enlarged prostate gland. Discharge Plan Discharge Clinical Impression: Enlarged prostate, Acute urinary retention, Kidney stone on left side Patient Disposition: Home, Self-Care Condition: Stable Instructions: Antibiotic Form, Urinary Retention in Men (ED), Enlarged Prostate (BPH) (ED) Additional Instructions: Maintain the indwelling Daniel catheter. Follow-up with Urology. Take Flomax and Tylenol, ibuprofen as needed. Return with any worsening pain, catheter is not draining, intractable pain, fevers that do not respond to Tylenol or ibuprofen, any other concerns. Call your regular doctor for close ER visit follow-up. Patient Language: Cape Verdean Prescriptions: New acetaminophen [Tylenol Extra Strength] 500 mg tablet 1,000 mg PO TID PRN (Reason: pain) Qty: 30 0RF tamsulosin [Flomax] 0.4 mg capsule 0.4 mg PO DAILY Qty: 20 0RF ibuprofen 600 mg tablet 600 mg PO TID PRN (Reason: pain) Qty: 20 0RF No Action oxycodone-acetaminophen [Percocet] 5-325 mg tablet 1 tablet PO Q6H PRN (Reason: pain) Qty: 42 0RF Follow-up/Referrals: Jessica,Prince Kyle MD [Primary Care Provider] - Elder Willoughby MD [Physician] - 1 Week (Urinary retention requiring Daniel, prostate enlargement) Time of Disposition: 06:35
[2024-11-26 04:06] LABS: Add Urine Microscopic? YES; Appearance Urine Clear (Clear); Bacteria Urine None Seen /hpf; Bilirubin Urine Negative (Negative); Blood Urine 2+ (Negative); Color Urine Yellow (Yellow); Glucose Urine UA Negative (Negative); Ketones Urine Negative (Negative); Leukocyte Esterase Ur Negative LEU/UL (Negative); Nitrate Urine Negative (Negative); Non Pathogenic Casts 0-2; Protein Urine Negative (Negative); RBC Urine 0-2 /hpf (0-2); Specific Grav Ur 1.007 (1.001-1.035); Squamous Epithelial Cell Urine None Seen /hpf (Few); Urobilinogen Urine 0.2 mg/dL (<2.0); WBC Urine 0-5 /hpf (0-3)
[2024-11-26 04:10] LABS: Alanine Aminotransferase 30 U/L (6-50); Albumin Level 4.9 g/dL (3.5-5.1); Alkaline Phosphatase 96 U/L (38-126); Anion Gap 16 mmol/L (4-12); Aspartate Amino Transferase 36 U/L (17-59); Bilirubin,Total 0.3 mg/dL (0.2-1.3); Blood Urea Nitrogen 17 mg/dL (9-20); Calcium 10.2 mg/dL (8.4-10.2); Carbon Dioxide 19 mmol/L (22-30); Chloride 106 mmol/L (98-107); Estimated CRCL calculation 83 ml/min; Estimated Glomerular Filt Rate > 60; Glucose 128 mg/dL (65-110); Lipase 48 U/L (23-300); Potassium 4.1 mmol/L (3.4-5.0); Sodium 141 mmol/L (137-145)
[2024-11-26 04:14] LABS: Basophils Percent Auto 0.2 % (0.2-1.2); Eosinophils Percent Auto 0.2 % (0-4.4); Hematocrit 46.3 % (42.0-52.0); Hemoglobin 15.8 g/dL (14.0-18.0); Immature Granulocyte Absolute 0.07 K/mm3 (0.00-0.031); Immature Granulocyte Percent A 0.4 % (0-0.5); Lymphocytes Absolute Auto 1.51 K/mm3 (0.9-3.2); Lymphocytes Percent Auto 8.5 % (18.3-44.2); Mean Corpuscular HGB Conc 34.1 g/dl (32-36); Mean Corpuscular Hemoglobin 30.7 pg (26-34); Mean Corpuscular Volume 89.9 fl (80-100); Mean Platelet Volume 11.2 fl (7.4-10.4); Monocytes Absolute Auto 0.6 K/mm3 (0.1-0.6); Monocytes Percent Auto 3.3 % (2.6-8.5); Neutrophils Absolute Auto 15.6 K/mm3 (1.3-6.7); Neutrophils Percent Auto 87.4 % (45.5-73.1); Platelet Count Result 243 k/mm3 (150-375); Red Blood Count 5.15 M/mm3 (4.6-6.20); Red Cell Distribution Width 13.4 % (11.5-14.5); White Blood Count 17.8 K/mm3 (4.5-10.0)
--- OUTSIDE RECORDS SUMMARY | 2024-11-26 05:06 | XMS_ITS | Encounter Summary ---
Author Organization [facility] Address [address] [facility] [place] [address] Care Team Providers Care Or Scrub Tech Name Role Phone Prince Lopez MD Primary Care Provider Encounter Details Date Type Department Care Team (Late st Contact Info) Description 11/25/2024 11:43 AM CDT - 11/25/2024 11:59 PM CDT Hospital Encounter [facility] [address] [facility] [place] [address] Gilson Almeida, DO [address] [facility] [place] [address] Discharge Disposition: Home or Self Care Social [...] encounter documented in this encounter Care Teams Or Scrub Tech Relationship Specialty Start Date End Date Prince Lopez MD [address] [address] PCP - General Internal Medicine 12/04/23 documented as of this encounter
--- OUTSIDE RECORDS SUMMARY | 2024-11-26 05:06 | XMS_ITS | Clinical Summary ---
Author Organization [facility] Address [address] [place] [address] Care Team Providers Care Rn Allergy Name Role Phone Prince Lopez MD Primary Care Provider Source Comments [facility],non-owned Affiliates and Associated Physician Practices is amultiple site organization consisting of ambulatory clinics and hospital sitesin [place], [place], [place] and [place]. This disclosure is being madepursuant to the Care Everywhere program and may not contain all information available regarding this patient. Last updated 18.[facility] Allergies No known active allergies Medications * [...] Description 11/25/2024 12:15 PM CDT Office Visit [facility] [address] [place] [phone] Gilson Almeida DO Hennessey, Margaret Ann, PA-C Closed displaced pilon fracture of left tibia with routine healing, subsequent encounter (Primary Dx) 11/25/2024 11:43 AM CDT - 11/25/2024 11:59 PM CDT Hospital Encounter [facility] CSM [address]L [address] [place] [phone] Gilson Almeida DO Discharge Disposition: Home or Self Care 11/24/2024 Orders Only [facility] [address] [place] [phone] Gilson Almeida DO Closed displaced pilon fracture [...] Comments Blood Pressure 133/89 09/19/2022 1:51 PM WEALTH MANAGEMENT MANAGER Pulse 81 09/19/2022 1:51 PM WEALTH MANAGEMENT MANAGER Temperature 36.7 C (98 F) 09/19/2022 1:51 PM WEALTH MANAGEMENT MANAGER Respiratory Rate 20 07/07/2022 12:47 PM WEALTH MANAGEMENT MANAGER Oxygen Saturation 98% 09/19/2022 1:51 PM WEALTH MANAGEMENT MANAGER Inhaled Oxygen Concentration - - Weight 90.7 kg (200 lb) 11/25/2024 11:52 AM CDT Height 188 cm (6' 2 ) 10/17/2022 3:17 PM WEALTH MANAGEMENT MANAGER Body Mass Index 25.68 10/17/2022 3:17 PM WEALTH MANAGEMENT MANAGER Plan of Treatment Health Maintenance Due Date [...] this topic Medical Devices Implanted Type Area Culinary Worker Device Identifier Shelf Expiration Date Model / Serial / Lot Pin Hlf 255mm 5mm Jtx Lng Ss 35mm Extfix Implanted:Qty: 2 on 06/12/2022 by Gilson Almeida DO at [facility] Left: Tibia [employer] [id number] / / Pin Hlf 5cm 5mm Jtx Orth Ss Extfix Sys Implanted:Qty: 1 on 06/12/2022 by Gilson Almeida DO at [facility] Left: Tibia [employer] [id number] / / Screw 3.5mm 30mm Cortx Slf-Tap Evos Strl Implanted:Qty: 2 on 07/05/2022 by Gilson Almeida DO at [facility] Left: Ankle [employer] [id number] / / Screw 3.5mm 42mm Slf-Tap Cortx Evos Strl Implanted:Qty: 1 on 07/05/2022 by Gilson Almeida, DO at [facility] Left: Ankle [employer] [id number] / / Screw 3.5mm 48mm 2.2mm Mldir Lck Sq Drv Implanted:Qty: 1 on 07/05/2022 by Gilson Almeida DO at [facility] Left: Ankle [employer] 8163-35-048 / / Screw 3.5mm 46mm T15 Drv Lck Lopro Implanted:Qty: 1 on 07/05/2022 by Gilson Almeida, DO at [facility] Left: Ankle [employer] 1312-18-046 / / Screw 3.5mm 55mm T15 Lck Lopro Slf-Tap Implanted:Qty: 2 on 07/05/2022 by Gilson Almeida DO at [facility] Left: Ankle [employer] [id number] / / Screw 3.5mm 26mm 2.5mm Nonlock Hex Drv Implanted:Qty: 1 on 07/05/2022 by Gilson Almeida DO at [facility] Left: Ankle [employer] 8150-37-026 / / Screw 3.5mm 30mm Ft Slf-Tap Hex Lopro Implanted:Qty: 1 on 07/05/2022 by Gilson Almeida DO at [facility] Left: Ankle [employer] 8150-37-030 / / Screw 3.5mm 34mm Ft Nonlock Hex Drv Elb Implanted:Qty: 1 on 07/05/2022 by Gilson Almeida DO at [facility] Left: Ankle [employer] [id number] / / Screw 3.5mm 42mm Ft Slf-Tap Hex Lopro Implanted:Qty: 1 on 07/05/2022 by Gilson Almeida DO at [facility] Left: Ankle [employer] [id number] / / Plate 9 Hl Lopro Va Lck Prt Artc Tib Lt Implanted:Qty: 1 on 07/05/2022 by Gilson Almeida DO at [facility] Left: Ankle [employer] [id number] / / Plate 9 Hl Lck Lopro Blt Tip Tib Lt Dist Implanted:Qty: 1 on 07/05/2022 by Gilson Almeida DO at [facility] Left: Ankle [employer] 8162-01-009 / / Plate 6 Hl Lck 70mm /3 Tblr Evos 3.5mm Implanted:Qty: 1 on 07/05/2022 by Gilson Almeida DO at [facility] Left: Ankle [employer] [id number] / / Plate 9 Hl Va Lck Fib Lt Dist 125mm Implanted:Qty: 1 on 07/05/2022 by Gilson Almeida, DO at [facility] Left: Ankle [employer] [id number] / / Screw 3.5mm 40mm Slf-Tap Cortx Evos Strl Implanted:Qty: 1 on 07/05/2022 by Gilson Almeida DO at [facility] Left: Ankle [employer] [id number] / / Screw 3.5mm 50mm Slf-Tap Cortx Evos Strl Implanted:Qty: 1 on 07/05/2022 by Gilson Almeida DO at [facility] Left: Ankle [employer] [id number] / / Screw 3.5mm 26mm Slf-Tap Cortx Evos Strl Implanted:Qty: 1 on 07/05/2022 by Gilson Almeida DO at [facility] Left: Ankle [employer] [id number] / / Screw 3.5mm 28mm Slf-Tap Cortx Evos Strl Implanted:Qty: 3 on 07/05/2022 by Gilson Almeida DO at [facility] Left: Ankle [employer] [id number] / / Explanted Type Area Culinary Worker Device Identifier Shelf Expiration Date Model / Serial / Lot Wire K 1.6mm 6in Hlf Bynt Pnt Ss Fx Explanted:Qty: 3 on 07/05/2022 by Gilson Almeida DO at [facility] Left: Ankle [employer] [id number] / / Screw 3.5mm 30mm T15 Slf-Tap Tip Lck Explanted:Qty: 1 on 07/05/2022 by Gilson Almeida DO at [facility] Left: Ankle [employer] [id number] / / Screw 3.5mm 44mm Ft Slf-Tap Hex Lopro Explanted:Qty: 1 on 07/05/2022 by Gilson Almeida DO at [facility] Left: Ankle [employer] [id number] / / Screw 3.5mm 46mm Ft Hex Drv Nlckg Ford Explanted:Qty: 1 on 07/05/2022 by Gilson Almeida DO at [facility] Left: Ankle [employer] 8150-37-046 / / Screw 3.5mm 20mm Slf-Tap Cortx Evos Strl Explanted:Qty: 1 on 07/05/2022 by Gilson Almeida DO at [facility] Left: Ankle [employer] [id number] / / Procedures Procedure Name Priority Date/Time [...] 4:47 PM 06/13/2022 7:29 PM Care Teams Rn Allergy Relationship Specialty Start Date End Date Prince Lopez MD [address] [address] PCP - General Internal Medicine 12/04/23
--- OUTSIDE RECORDS SUMMARY | 2024-11-26 05:06 | XMS_ITS | Encounter Summary ---
Author Organization [facility] Address [address] [facility] [place] [address] Care Team Providers Care Steel Sash Erector Name Role Phone Prince Lopez MD Primary Care Provider [phone] Encounter Details Date Type Department Care Team (Late st Contact Info) Description 11/24/2024 Orders Only [facility] [address] [place] [address], [place] [phone] Gilson Almeida, [address] [place] [address] [place] [address] Closed displaced pilon fracture of left tibia [...] encounter documented in this encounter Care Teams Steel Sash Erector Relationship Specialty Start Date End Date Prince Lopez MD [address] [address] PCP - General Internal Medicine 12/04/23 documented as of this encounter
--- OUTSIDE RECORDS SUMMARY | 2024-11-26 05:06 | XMS_ITS | CONTINUITY OF CARE DOCUMENT ---
Author Name lelo lind Address Unknown Organization [facility] Address [address] [facility] [address] [place] [address] Phone [phone] Care Team Providers Care Toys And Games Hand Finisher Name Role Phone Caesar Stafford MD Unavailable [phone] Prince Lopez MD Unavailable Prince Lopez MD Unavailable [phone] PROBLEMS Condition Status Date Provider Notes CHEST PAIN-TYPE TO BE DETERMINED active ? Caesar Stafford MD TOBACCO ABUSE active ? Caesar Stafford MD PALPITATIONS active Caesar Stafford MD ENCOUNTERS Date Type Provider Location Encounter Diag nosis - In-person encounter Office Visit Caesar Stafford MD [place] [facility] CHEST PAIN-TYPE TO BE DETERMINEDTOBACCO ABUSEPALPITATIONS [...] or m ore Link[facility] status [facility] MENTAL STATUS Date Observation Value Provider assessment of judgme nt and insight E&M Alert and oriented to time, place and person. Mood and affect are normal. Stefan Hughes RN INSURANCE PROVIDERS Payer name Policy type / Coverage type Yung red constitution party ID [employer] [facility] Other [id number] TREATMENT PLAN Date Name Performer chest pain: B P today: 117/71 Prior BP: / () Orders: E KG (CPT-27832) C omplete Echo (CPT-73997) S tress Test - Nuclear (49834) Caesar Stafford MD Date Name Holter Monitor 24 Hr Stress Test - Nuclea r Complete Echo HISTORY OF PROCEDURES Procedure Date Procedure Name Provider Procedure Notes S tatus EKG Caesar Stafford MD completed
--- OUTSIDE RECORDS SUMMARY | 2024-11-26 05:06 | XMS_ITS | Clinical Summary ---
Author Organization [facility] Address [address] [place] [address] Care Team Providers Care Benefits Assistant Name Role Phone Prince Lopez MD Primary Care Provider Allergies No known active allergies Medications No [...] to complete this topic Insurance Care Teams Benefits Assistant Relationship Specialty Start Date End Date Prince Lopez MD PCP - General INTERNAL MEDICINE 06/11/22
--- OUTSIDE RECORDS SUMMARY | 2024-11-26 05:06 | XMS_ITS | Encounter Summary ---
Author Organization [facility] Address [address] [facility] [place] [address] Care Team Providers Care Commercial Real Estate Underwriter Name Role Phone Prince Lopez MD Primary Care Provider [phone] Encounter Details Date Type Department Care Team (Late st Contact Info) Description 11/25/2024 12:15 PM CDT Office Visit [facility] [address] [place] [address], [place] [phone] Gilson Almeida, [address] [facility] [place] [address] Freya ePrez PA-C [address] [place] [address] [place] [address] Closed displaced pilon fracture of left tibia [...] Body Mass Index 25.68 10/17/2022 3:17 PM TEACHER OF THE DEAF/HARD OF HEARING documented in this encounter Functional Status Functional [...] the clinic if you have any questions. [facility] Orthopaedic office contact information: [facility] ([facility]) - 1st Floor [address] [place] [address] For after hour concerns, please call and press 0 for the band saw operator cake cutting in order to page the orthopedic resident production control supervisor. Visit our website at [email or web address] for information about our practice and an interactive health encyclopedia. Please visit [email or web address] to access your health record, ask questions, request medication refills, and request appointments for non-urgent needs after you have configured your [employer] account. If you do not currently have access, please contact one of our staff members or call [phone]. documented in this encounter Progress Notes * [...] Primary documented in this encounter Care Teams Commercial Real Estate Underwriter Relationship Specialty Start Date End Date Prince Lopez MD [address] [address] PCP - General Internal Medicine 12/04/23 documented as of this encounter
[2024-11-26 05:49] VITALS: BP 126/84; PULSE 61; RESP 19; O2SAT 98
[2024-11-26 06:25] VITALS: BP 124/85; PULSE 75; RESP 19; TEMP 36.7; O2SAT 97
[2024-11-26] MEDS: TAMSULOSIN HCL 0.4 MG CAPSULE PO (06:30)
== END 2024-11-26 06:45 | disposition home or self-care (01) ==
PROVIDERS: Emergency Provider Student in an Organized Health Care Education/Training Program; PCP Internal Medicine
DX: N40.1 Benign prostatic hyperplasia with lower urinary tract symptoms (principal); R33.8 Other retention of urine; N20.0 Calculus of kidney; F17.200 Nicotine dependence, unspecified, uncomplicated
CPT/HCPCS: 36415; 51702; 74176; 80053; 81001; 83690; 85025; 99284; A9270